=== PATIENT | male | born 1995 | race Caucasian/White ===

== ENCOUNTER 2020-02-29 01:48 | Emergency (ER) | payer BC ==
[~2020-02-29] VITALS: Ht 182.9 cm; Wt 79.0 kg
[2020-02-29 02:03] VITALS: Ht 182.9 cm; Wt 79.0 kg
[2020-02-29 03:26] VITALS: BP 133/92
== END 2020-02-29 03:26 | disposition home or self-care (01) ==
LOC: ED 01:48
DX: K21.9 Gastro-esophageal reflux disease without esophagitis (principal); R10.13 Epigastric pain